=== PATIENT | male | born 1980 | race Caucasian/White ===

== ENCOUNTER → 2018-06-28 | Outpatient (CLI) | payer OTHER ==
[~2018-06-28] MED LIST: CENTRUM TABLET1 TAB PO; CEPACOL SORE T1 EAC2 OR; FISH OIL 1,0001 EAC5 PO; GNP B-COMPLEX1 EACH PO; NOHOMEMEDICATIONS; PREDNISONE 10 M10 MG OR; VITAMIN D35000 UNI1 PO; [UNRECOGNIZED DRUG - OTHER] PO
== END ==
LOC: CAT 08:29
DX: Z13.6 Encounter for screening for cardiovascular disorders (principal); E78.00 Pure hypercholesterolemia, unspecified; I25.10 Atherosclerotic heart disease of native coronary artery without angina pectoris